=== PATIENT | female | born 1960 | race Two or more races ===

== ENCOUNTER 2020-04-06 08:10 | Day surgery (SDC) | payer OTHER ==
[~2020-04-06 08:10] MED LIST: CLONAZEPAM0.5 MG PO; LIPITOR40 M1 PO; NAPR500T14 PO; WELLBUTRIN SR150 MG PO; ZYPREXA5 MG PO
[2020-04-06] MEDS ORDERED: PERCOCET 5-3251 EACH PO (14:25)
== END 2020-04-06 17:10 | disposition home or self-care (01) ==
LOC: CIR.AMB 08:10
PROVIDERS: ATTEND Surgery
DX: D34 Benign neoplasm of thyroid gland (principal); Z20.828 Contact with and (suspected) exposure to other viral communicable diseases